=== PATIENT | male | born 1990 | race Two or more races ===

== ENCOUNTER 2018-03-08 19:51 | Emergency (ER) | payer MEDICAID ==
[~2018-03-08] VITALS: Ht 152.4 cm; Wt 63.5 kg
--- NOTE | 2018-03-08 19:51 | NUR ---
BB FAMILY; ABD PAIN X 2 DAYS. VSS NAD A/OX4 ABLE TO MAKE NEEDS KNOWN. SPEAKS [place]
[2018-03-08] MEDS ORDERED: MORPHINE SULFATE INJ 2 MG/ML DISP.SYRIN IV ONE (20:30)
[2018-03-08] MEDS ORDERED: ONDANSETRON HCL/PF 4 MG/2 ML VIAL IVP ONE (20:30)
[2018-03-08] MEDS ORDERED: IV NS 0.9% 1,000 ML BAG IV ONE (20:30)
[2018-03-08] MEDS ORDERED: ONDANSETRON HCL/PF 4 MG/2 ML VIAL ONE (20:49)
[2018-03-08] MEDS ORDERED: MORPHINE SULFATE INJ 4 MG/ML DISP.SYRIN ONE (20:49)
[2018-03-08 20:50] LABS: BASOPHILS # (AUTO) 0.1 /CMM (0.0-0.2); BASOPHILS % (AUTO) 0.4 % (0.0-2.0); EOSINOPHILS % (AUTO) 5.8 % (0.0-6.0); HEMATOCRIT 42 % (39-51); HEMOGLOBIN 14.7 g/dL (13.5-17.5); LYMPHOCYTES # (AUTO) 3.6 /CMM (0.8-4.8); LYMPHOCYTES % (AUTO) 24.4 % (20.0-44.0); MEAN CORPUSCULAR HGB CONC 35 g/dl (31.0-36.0); MEAN CORPUSCULAR VOLUME 82 fL (80-96); MONOCYTES # (AUTO) 1.3 /CMM (0.1-1.30); MONOCYTES % (AUTO) 8.6 % (2.0-12.0); NEUTROPHILS # (AUTO) 8.8 /CMM (1.8-8.9); NEUTROPHILS % (AUTO) 60.8 % (43.0-81.0); PLATELET COUNT (AUTO) 213 /CMM (150-450); RED BLOOD CELL COUNT(AUTO) 5.08 MIL/uL (4.5-6.0); WHITE BLOOD COUNT (AUTO) 14.6 K/uL (4.3-11.0)
[2018-03-08 21:28] LABS: CALCIUM, SERUM 8.9 mg/dL (8.5-10.1); CREATININE 0.8 mg/dL (0.6-1.3)
[2018-03-08 21:45] LABS: BILIRUBIN,DIRECT 0.1 mg/dL (0.0-0.2); BILIRUBIN,TOTAL 0.3 mg/dL (0.2-1.0); TOTAL PROTEIN, SERUM 7.8 g/dL (6.4-8.2)
[2018-03-08] MEDS ORDERED: METRONIDAZOLE 500 MG TABLET ONE (22:27)
[2018-03-08] MEDS ORDERED: CIPROFLOXACIN HCL 250 MG TABLET ONE (22:27)
[2018-03-08] MEDS ORDERED: CIPROFLOXACIN HCL 250 MG TABLET PO ONE (22:30)
[2018-03-08] MEDS ORDERED: METRONIDAZOLE 500 MG TABLET PO ONE (22:30)
[2018-03-08 22:34] VITALS: BP 125/76
== END 2018-03-08 22:35 | disposition home or self-care (01) ==
LOC: EDBD 19:55 → ER 19:55
DX: K63.5 Polyp of colon (principal); K52.89 Other specified noninfective gastroenteritis and colitis
CPT/HCPCS: 36415; 74176; 80048; 80076; 85025; 96361; 96374; 96375; 99285; A4606; J2270; J2405; Z7610